=== PATIENT | female | born 1995 | race Caucasian/White ===

== ENCOUNTER 2017-09-11 20:06 | Observation (INO) | payer OTHER ==
[~2017-09-11] VITALS: Ht 157.5 cm; Wt 55.0 kg
[~2017-09-11 20:06] MED LIST: CETI10 PO; HYDR-3533 PO; NAPR-729 PO; Z.0.BCPILL PO; ZOFR4TAB3 PO
[2017-09-11 20:09] VITALS: BP 166/90; PULSE 125; RESP 20; TEMP 98.5; O2SAT 99
--- NOTE | 2017-09-11 21:28 | PD ---
HPI Chief Complaint: Flank/Kidney Pain Time Seen by Provider: 21:19 Travel History International Travel<30 days: No Contact w/Intl Traveler<30days: No Traveled to known affect area: No History of Present Illness HPI 21-year-old white female presents to emergency department with complaints of left flank and left lower quadrant tenderness that came on abruptly at 4:00 this afternoon. She states that this is reminiscent of her kidney stone pain. Patient states that she's had several kidney stones in the past. She isn't [employer] student. She lives in [place]. Her last kidney stone was approximately one year ago. She's had associated nausea but no vomiting. She states the pain is an 8/10. No alleviating or exacerbating activities. She denies any recent illness. She denies any fever, chills, vomiting, dysuria, frequency, hematuria or rashes. [facility] Past Medical History Narrative Medical Nephrolithiasis Kidney Stones: Yes Immunizations Current: Yes Tetanus Vaccination: < 5 Years ?: Not LMP: 08/29/17 Past Surgical History Surgical History: No Previous Surgery Social History Alcohol Use: No Tobacco Use: No Substance Use: No Allergies-Medications (Allergen,Severity, Reaction): Coded Allergies: No Known Allergies (Unverified Adverse Reaction, Unknown, 09/11/17) Reported Meds & Prescriptions Reported Meds & Active Scripts Active Zofran ODT (Ondansetron HCl) 4 Mg Tab 4 Mg PO Q6 PRN May substitute, non-ODT form Lortab 5 mg/325 mg (Hydrocodone/Acetaminophen 5 mg/325 mg) 1 Tab 1 Tab PO Q6HR PRN Naprosyn (Naproxen) 375 Mg Tab 375 Mg PO BID PRN Take as needed for pain, do not combine with other NSAIDs. Reported Control Pills (Miscellaneous Medication) Tab 1 Tab PO DAILY Zyrtec 10 Mg Tab (Cetirizine HCl) 10 Mg Tab 10 Mg PO DAILY Review of Systems General / Constitutional: No: Fever Eyes: No: Visual changes HENT: No: Headaches Cardiovascular: No: Chest Pain or Discomfort Respiratory: No: Shortness of Breath Gastrointestinal: Positive: Nausea, Abdominal Pain, Loss of Appetite Genitourinary: No: Urgency, Dysuria, Nocturia, Hematuria, Pelvic Pain, Discharge Musculoskeletal: No: Pain Skin: No Rash Neurologic: No: Weakness Psychiatric: No: Depression Endocrine: No: Polydipsia Hematologic/Lymphatic: No: Easy Bruising Physical Exam Narrative GENERAL: Well-developed, well-nourished in no apparent mild distress secondary to pain.. Nontoxic appearing. HEAD: Normocephalic, atraumatic. EYES: Pupils equal round and reactive. Extraocular motions intact. No scleral icterus. No injection or drainage. ENT: Nose clear. Throat without erythema, tonsillar hypertrophy or exudate. Uvula midline. Airway patent. NECK: Trachea midline. Supple, nontender, moves head freely. No central bony tenderness or spasm. CARDIOVASCULAR: Regular rate and rhythm without murmurs, gallops, or rubs. RESPIRATORY: Clear to auscultation. Breath sounds equal bilaterally. No wheezes , rales, or rhonchi. GASTROINTESTINAL: Abdomen soft, mild tenderness in the left lower quadrant, nondistended. No hepato-splenomegaly, or palpable masses. No guarding. EXTREMITIES: No clubbing, cyanosis, or edema. No joint tenderness. BACK: Nontender without deformity. No flank tenderness. NEUROLOGICAL: Awake, alert and oriented x 3 .Cranial nerves grossly intact. Motor and sensory grossly within normal limits. Normal speech. Data Data Last Documented VS Vital Signs Date Time Temp Pulse Resp B/P (MAP) Pulse Ox O2 Delivery O2 Flow Rate FiO2 09/11/17 22:25 92 20 144/79 (100) 100 Room Air 09/11/17 20:09 98.5 Orders Orders Urinalysis - C+S If Indicated (09/11/17 20:40) Ed Urine Pregnancytest Poc (09/11/17 20:40) Ct Abd/Pel W/O Iv Contrast (09/11/17 21:20) Iv Access Insert/Monitor (09/11/17 21:23) Complete Blood Count With Diff (09/11/17 21:23) Basic Metabolic Panel (Bmp) (09/11/17 21:23) Sodium Chlor 0.9% 1000 Ml Inj (Ns 1000 M (09/11/17 21:30) Ondansetron Inj (Zofran Inj) (09/11/17 21:30) Ketorolac Inj (Toradol Inj) (09/11/17 21:30) Urine Culture (09/11/17 20:49) Morphine Inj (Morphine Inj) (09/11/17 22:30) Labs Laboratory Tests Test 09/11/17 20:49 09/11/17 21:40 Urine Color YELLOW Urine Turbidity HAZY Urine pH 6.0 Urine Specific [place] 1.023 Urine Protein TRACE mg/dL Urine Glucose (UA) NEG mg/dL Urine Ketones 10 mg/dL Urine Occult Blood MOD Urine Nitrite NEG Urine Bilirubin NEG Urine Urobilinogen 2.0 MG/DL Urine Leukocyte Esterase SMALL Urine RBC 35 /hpf Urine WBC 13 /hpf Urine Squamous Epithelial Cells 5 /hpf Urine Mucus MOD /lpf Microscopic Urinalysis Comment CULTURE INDICATED White Blood Count 9.0 TH/MM3 Red Blood Count 4.49 MIL/MM3 Hemoglobin 13.1 GM/DL Hematocrit 38.6 % Mean Corpuscular Volume 86.0 FL Mean Corpuscular Hemoglobin 29.2 PG Mean Corpuscular Hemoglobin Concent 33.9 % Red Cell Distribution Width 12.1 % Platelet Count 232 TH/MM3 Mean Platelet Volume 8.3 FL Neutrophils (%) (Auto) 68.1 % Lymphocytes (%) (Auto) 24.6 % Monocytes (%) (Auto) 6.3 % Eosinophils (%) (Auto) 0.3 % Basophils (%) (Auto) 0.7 % Neutrophils # (Auto) 6.1 TH/MM3 Lymphocytes # (Auto) 2.2 TH/MM3 Monocytes # (Auto) 0.6 TH/MM3 Eosinophils # (Auto) 0.0 TH/MM3 Basophils # (Auto) 0.1 TH/MM3 CBC Comment DIFF FINAL Differential Comment Blood Urea Nitrogen 9 MG/DL Creatinine 0.62 MG/DL Random Glucose 86 MG/DL Calcium Level 9.0 MG/DL Sodium Level 138 MEQ/L Potassium Level 3.9 MEQ/L Chloride Level 102 MEQ/L Carbon Dioxide Level 25.1 MEQ/L Anion Gap 11 MEQ/L Estimat Glomerular Filtration Rate 122 ML/MIN [facility] Medical Decision Making Medical Screen Exam Complete: Yes Emergency Medical Condition: Yes Medical Record Reviewed: Yes Interpretation(s) Last 24 hours Impressions Abdomen/Pelvis CT 09/11/172119 Signed Impressions: Service Date/Time: Monday, September 11, 2017 22:05 - CONCLUSION: 1. Right ovarian cyst. 2. Nonobstructing punctate right renal calculi. 3. 1 cm left UPJ calculus with mild left hydronephrosis. 4. Small amount of free fluid in the pelvis. Robin A. Josse, MD CBC & BMP Diagram 09/11/17 21:40 Laboratory Tests Test 09/11/17 20:49 09/11/17 21:40 Urine Color YELLOW Urine Turbidity HAZY Urine pH 6.0 Urine Specific [place] 1.023 Urine Protein TRACE mg/dL Urine Glucose (UA) NEG mg/dL Urine Ketones 10 mg/dL Urine Occult Blood MOD Urine Nitrite NEG Urine Bilirubin NEG Urine Urobilinogen 2.0 MG/DL Urine Leukocyte Esterase SMALL Urine RBC 35 /hpf Urine WBC 13 /hpf Urine Squamous Epithelial Cells 5 /hpf Urine Mucus MOD /lpf Microscopic Urinalysis Comment CULTURE INDICATED White Blood Count 9.0 TH/MM3 Red Blood Count 4.49 MIL/MM3 Hemoglobin 13.1 GM/DL Hematocrit 38.6 % Mean Corpuscular Volume 86.0 FL Mean Corpuscular Hemoglobin 29.2 PG Mean Corpuscular Hemoglobin Concent 33.9 % Red Cell Distribution Width 12.1 % Platelet Count 232 TH/MM3 Mean Platelet Volume 8.3 FL Neutrophils (%) (Auto) 68.1 % Lymphocytes (%) (Auto) 24.6 % Monocytes (%) (Auto) 6.3 % Eosinophils (%) (Auto) 0.3 % Basophils (%) (Auto) 0.7 % Neutrophils # (Auto) 6.1 TH/MM3 Lymphocytes # (Auto) 2.2 TH/MM3 Monocytes # (Auto) 0.6 TH/MM3 Eosinophils # (Auto) 0.0 TH/MM3 Basophils # (Auto) 0.1 TH/MM3 CBC Comment DIFF FINAL Differential Comment Blood Urea Nitrogen 9 MG/DL Creatinine 0.62 MG/DL Random Glucose 86 MG/DL Calcium Level 9.0 MG/DL Sodium Level 138 MEQ/L Potassium Level 3.9 MEQ/L Chloride Level 102 MEQ/L Carbon Dioxide Level 25.1 MEQ/L Anion Gap 11 MEQ/L Estimat Glomerular Filtration Rate 122 ML/MIN Calcium Level 9.0 Differential Diagnosis Differential diagnoses: Ovarian torsion, ruptured ovarian cyst, diverticulitis, nephrolithiasis and ureterolithiasis, pyelonephritis Narrative Course IV access is obtained. Patient's given a liter bolus of normal saline, Zofran 4 mg IV, and Toradol 30 mg IV. Routine laboratory tests included CBC, chemistry , UA, hCG and CT of the abdomen has been ordered. CAT scan reveals a 1 cm left UPJ stone with elevated hydronephrosis. Patient has been very uncomfortable. She is been given multiple doses of analgesic medicines. With such a large stone and patient's pain improved with the patient requires admission to the hospital. I discussed the case with Dr. Austin the urologist television repair teacher who is agreed to be consulted on the case. I discussed the case with Dr. Kelly who has agreed to admit the patient. This is left ureterolithiasis Diagnosis Primary Impression: left ureterolithiasis Admitting Information Admitting Physician Requests: Observation Condition: Stable Mathew Curry Sep 11, 2017 21:28
[2017-09-11] MEDS ORDERED: KETOROLAC TROMETHAMINE 30 MG/ML (IVP) VIAL IV PUSH ONE (21:30)
[2017-09-11] MEDS ORDERED: SODIUM CHLOR 0.9% 1000 ML INJ 1,000 ML IV ONE (21:30)
[2017-09-11] MEDS ORDERED: ONDANSETRON HCL 4 MG/2 ML VIAL IV PUSH ONE (21:30)
[2017-09-11 21:33] LABS: BILIRUBIN, URINE NEG (NEG); BLOOD, URINE MOD (NEG); GLUCOSE,URINE NEG (NEG); KETONE, URINE 10 mg/dL (NEG); MUCUS URINE MOD /lpf (OCC); NITRITE,URINE NEG (NEG); SQUAMOUS EPITHELIAL CELL URINE 5 /hpf (0-5); URINE COLOR YELLOW (YELLW/STRAW); URINE LEUKOCYTE ESTERASE SMALL (NEG)
[2017-09-11 21:57] LABS: AUTOMATED NEUTROPHIL # 6.1 TH/MM3 (1.8-7.7); BASOPHIL # 0.1 TH/MM3 (0-0.2); BASOPHIL % 0.7 % (0.0-2.0); EOSINOPHIL % 0.3 % (0.0-4.0); HEMATOCRIT 38.6 % (35.0-46.0); HEMOGLOBIN 13.1 GM/DL (11.6-15.3); LYMPH % 24.6 % (9.0-44.0); LYMPHOCYTE # 2.2 TH/MM3 (1.0-4.8); MEAN CORPUSCULAR HEMOGLOBIN 29.2 PG (27.0-34.0); MEAN CORPUSCULAR HGB CONC 33.9 % (32.0-36.0); MEAN PLATELET VOLUME 8.3 FL (7.0-11.0); MONO % 6.3 % (0.0-8.0); MONOCYTE # 0.6 TH/MM3 (0-0.9); NEUT % 68.1 % (16.0-70.0); PLATELET COUNT 232 TH/MM3 (150-450); RED BLOOD COUNT 4.49 MIL/MM3 (4.00-5.30); RED CELL DISTRIBUTION WIDTH 12.1 % (11.6-17.2)
--- NOTE | 2017-09-11 22:19 | RADRPT ---
EXAM DATE/TIME: 09/11/2017 22:05 [place] COMPARISON: CT ABDOMEN & PELVIS W/O CONTRAST, September 08, 2015, 12:00. INDICATIONS : Left flank pain today. ORAL CONTRAST: No oral contrast ingested. RADIATION DOSE: 4.12 CTDIvol (mGy) MEDICAL HISTORY : None SURGICAL HISTORY : None. ENCOUNTER: Initial ACUITY: 1 day PAIN SCALE: 10/10 LOCATION: Left flank TECHNIQUE: Volumetric scanning of the abdomen and pelvis was performed. Using automated exposure control and ad justment of the mA and/or kV according to patient size, radiation dose was kept as low as reasonably achievable to obtain optimal diagnostic quality images. DICOM format image data is available electro nically for review and comparison. FINDINGS: Lung bases are clear. The osseous structures are intact. No pleural effusions. Liver, gallbladde r, spleen, pancreas, adrenal glands unremarkable. There are a few punctate calculi the right kidney, nonobstructing. Left kidney demonstrates mild hydronephrosis and a stone within the left proximal ure ter on image 42 measuring 1 cm at the ureteropelvic junction. No other stones are seen on the left. T he bladder is unremarkable. Uterus unremarkable. A right ovarian cyst is suspected measuring 4.2 cm. A small amount of free fluid in the pelvis. No evidence of bowel obstruction. CONCLUSION: 1. Right ovarian cyst. 2. Nonobstructing punctate right renal calculi. 3. 1 cm left UPJ calculus with mild left hydronephrosis. 4. Small amount of free fluid in the pelvis. Robin Loaiza MD on September 11, 2017 at 22:14 Board Certified Radiologist. This report was verified electronically.
[2017-09-11 22:21] LABS: BICARBONATE 25.1 MEQ/L (21.0-32.0); CREATININE 0.62 MG/DL (0.50-1.00)
[2017-09-11 22:25] VITALS: BP 144/79; PULSE 92; RESP 20; O2SAT 100
[2017-09-11] MEDS ORDERED: MORPHINE SULFATE 8 MG/ML INJ IV PUSH ONE (22:30)
[2017-09-11 22:33] VITALS: BP 129/68; PULSE 90; RESP 18; O2SAT 100
[2017-09-11] MEDS ORDERED: ONDANSETRON HCL 4 MG/2 ML VIAL IVP PRN (23:15)
[2017-09-11] MEDS ORDERED: SODIUM CHLORIDE 0.9% FLUSH 10 ML FLUSH IV FLUSH PRN (23:15)
[2017-09-11] MEDS ORDERED: NALOXONE HCL 0.4 MG/ML AMP IV PUSH PRN (23:15)
[2017-09-11] MEDS ORDERED: MORPHINE SULFATE 2 MG/ML INJ IV PUSH PRN (23:15)
[2017-09-11] MEDS ORDERED: ACETAMINOPHEN 325 MG TAB PO PRN (23:15)
[2017-09-11] MEDS ORDERED: oxyCODONE/ACETAMINOPHEN 5 MG/325 MG TAB PO PRN (23:15)
[2017-09-11] MEDS: SODIUM CHLOR 0.9% 1000 ML INJ 1,000 ML IV SCH (23:30)
[2017-09-11 23:35] VITALS: BP 119/67; PULSE 80; RESP 16; O2SAT 100
[2017-09-12] VITALS: BP 121/67; PULSE 79; RESP 17; TEMP 98.1; O2SAT 98
--- NOTE | 2017-09-12 02:17 | HHI.HP ---
[facility] No Primary Care Physician Admission Diagnosis left ureterolithiasis Diagnoses: Travel History International Travel<30 Days: No Contact w/Intl Traveler <30 Da: No Traveled to Known Affected Are: No History of Present Illness 21-year-old female presents to the emergency department with a one-day history of left-sided flank pain. Patient has a history of kidney stones that have been recurrent since she was 17. She has not previously required any intervention. She states the pain was so great that she came to the emergency department. She denies any hematuria or pus in her urine. Denies any systemic symptoms such as fever/chills. Review of Systems Denies fever or chills Denies blurry vision, otorrhea, rhinorrhea Denies sore throat and cough No chest pain, palpitations, shortness of breath No abdominal pain Denies constipation/diarrhea/nausea/vomiting Denies muscle pain/weakness No rashes Past Family Social History Past Medical History History of renal calculi Past Surgical History None Reported Medications Reported Meds & Active Scripts Active Zofran ODT (Ondansetron HCl) 4 Mg Tab 4 Mg PO Q6 PRN May substitute, non-ODT form Lortab 5 mg/325 mg (Hydrocodone/Acetaminophen 5 mg/325 mg) 1 Tab 1 Tab PO Q6HR PRN Naprosyn (Naproxen) 375 Mg Tab 375 Mg PO BID PRN Take as needed for pain, do not combine with other NSAIDs. Reported Control Pills (Miscellaneous Medication) Tab 1 Tab PO DAILY Zyrtec 10 Mg Tab (Cetirizine HCl) 10 Mg Tab 10 Mg PO DAILY Allergies: Coded Allergies: No Known Allergies (Unverified Allergy, Unknown, 09/11/17) Family History Mother with history of renal calculi and gallstones. Father healthy. Grandfather with CAD. Social History Occasional alcohol. Denies tobacco or illicit drugs. Physical Exam Vital Signs Vital Signs Date Time Temp Pulse Resp B/P (MAP) Pulse Ox O2 Delivery O2 Flow Rate FiO2 09/12/17 00:00 98.1 79 17 121/67 (85) 98 09/11/17 23:35 80 16 119/67 (84) 100 Room Air 09/11/17 22:33 90 18 129/68 (88) 100 Room Air 09/11/17 22:25 92 20 144/79 (100) 100 Room Air 09/11/17 20:09 98.5 125 20 166/90 (115) 99 Room Air Physical Exam GENERAL: White female lying in bed SKIN: No rashes, ecchymoses or lesions. Cool and dry. HEAD: Atraumatic. Normocephalic. No temporal or scalp tenderness. EYES: Pupils equal round and reactive. Extraocular motions intact. No scleral icterus. No injection or drainage. ENT: Nose without bleeding, purulent drainage or septal hematoma. Throat without erythema, tonsillar hypertrophy or exudate. Uvula midline. Airway patent. NECK: Trachea midline. No JVD or lymphadenopathy. Supple, nontender, no meningeal signs. CARDIOVASCULAR: Regular rate and rhythm without murmurs, gallops, or rubs. RESPIRATORY: Clear to auscultation. Breath sounds equal bilaterally. No wheezes , rales, or rhonchi. GASTROINTESTINAL: Abdomen soft, non-tender, nondistended. No hepato-splenomegaly , or palpable masses. No guarding. : Left CVA tenderness MUSCULOSKELETAL: Extremities without clubbing, cyanosis, or edema. No joint tenderness, effusion, or edema noted. NEUROLOGICAL: Awake and alert. Cranial nerves II through XII intact. Motor and sensory grossly within normal limits. Normal speech. Laboratory Laboratory Tests Test 09/11/17 20:49 09/11/17 21:40 Urine Color YELLOW Urine Turbidity HAZY Urine pH 6.0 Urine Specific [place] 1.023 Urine Protein TRACE Urine Glucose (UA) NEG Urine Ketones 10 Urine Occult Blood MOD Urine Nitrite NEG Urine Bilirubin NEG Urine Urobilinogen 2.0 Urine Leukocyte Esterase SMALL Urine RBC 35 Urine WBC 13 Urine Squamous Epithelial Cells 5 Urine Mucus MOD Microscopic Urinalysis Comment CULTURE INDICATED White Blood Count 9.0 Red Blood Count 4.49 Hemoglobin 13.1 Hematocrit 38.6 Mean Corpuscular Volume 86.0 Mean Corpuscular Hemoglobin 29.2 Mean Corpuscular Hemoglobin Concent 33.9 Red Cell Distribution Width 12.1 Platelet Count 232 Mean Platelet Volume 8.3 Neutrophils (%) (Auto) 68.1 Lymphocytes (%) (Auto) 24.6 Monocytes (%) (Auto) 6.3 Eosinophils (%) (Auto) 0.3 Basophils (%) (Auto) 0.7 Neutrophils # (Auto) 6.1 Lymphocytes # (Auto) 2.2 Monocytes # (Auto) 0.6 Eosinophils # (Auto) 0.0 Basophils # (Auto) 0.1 CBC Comment DIFF FINAL Differential Comment Blood Urea Nitrogen 9 Creatinine 0.62 Random Glucose 86 Calcium Level 9.0 Sodium Level 138 Potassium Level 3.9 Chloride Level 102 Carbon Dioxide Level 25.1 Anion Gap 11 Estimat Glomerular Filtration Rate 122 Date/Time Source Procedure Growth Status 09/11/17 20:49 Urine Clean Catch Urine Culture Pending Received Result Diagram: 09/11/17213909/11/172139 Caprinmohinder VTE Risk Assessment Caprini VTE Risk Assessment: No/Low Risk (score <= 1) Caprini Risk Assessment Model Point Value = 1 Point Value = 2 Point Value = 3 Point Value = 5 Age 41-60 Minor surgery BMI > 25 kg/m2 Swollen legs Varicose veins or History of unexplained or recurrent spontaneous Oral contraceptives or hormone replacement Sepsis (< 1 month) Serious lung disease, including pneumonia (< 1 month) Abnormal pulmonary function Acute myocardial infarction Congestive heart failure (< 1 month) History of inflammatory bowel disease Medical patient at bed rest Age 61-74 Arthroscopic surgery Major open surgery (> 45 min) Laparoscopic surgery (> 45 min) Malignancy Confined to bed (> 72 hours) Immobilizing plaster cast Central venous access Age >= 75 History of VTE Family history of VTE Factor V Leiden Prothrombin [id number] Lupus anticoagulant Anticardiolipin antibodies Elevated serum homocysteine Heparin-induced thrombocytopenia Other congenital or acquired thrombophilia Stroke (< 1 month) Elective arthroplasty Hip, pelvis, or leg fracture Acute spinal cord injury (< 1 month) Prophylaxis Regimen Total Risk Factor Score Risk Level Prophylaxis Regimen 0-1 Low Early ambulation 2 Moderate Order ONE of the following: *Sequential Compression Device (SCD) *Heparin 5000 units SQ BID 3-4 Higher Order ONE of the following medications: *Heparin 5000 units SQ TID *Enoxaparin/Lovenox 40 mg SQ daily (WT < 150 kg, CrCl > 30 mL/min) *Enoxaparin/Lovenox 30 mg SQ daily (WT < 150 kg, CrCl > 10-29 mL/min) *Enoxaparin/Lovenox 30 mg SQ BID (WT < 150 kg, CrCl > 30 mL/min) AND/OR *Sequential Compression Device (SCD) 5 or more Highest Order ONE of the following medications: *Heparin 5000 units SQ TID (Preferred with Epidurals) *Enoxaparin/Lovenox 40 mg SQ daily (WT < 150 kg, CrCl > 30 mL/min) *Enoxaparin/Lovenox 30 mg SQ daily (WT < 150 kg, CrCl > 10-29 mL/min) *Enoxaparin/Lovenox 30 mg SQ BID (WT < 150 kg, CrCl > 30 mL/min) AND *Sequential Compression Device (SCD) Assessment and Plan Assessment and Plan 21-year-old female presents with a 1 cm left renal calculus with mild hydronephrosis 1. Renal calculus CT of the abdomen and pelvis shows nonobstructing punctate right renal calculi and 1 cm left calculus with mild hydronephrosis Urology consulted, appreciate assistance Nothing by mouth until evaluated by urology Pain control with Percocet and morphine IV fluid hydration FEN Nothing by mouth Electrolytes within normal limits: Continue to monitor SCDs NS at 100 cc/hour Kareen Kelly MD Sep 12, 2017 02:17
[2017-09-12] MEDS: SODIUM CHLOR 0.9% 1000 ML INJ 1,000 ML IV SCH (07:47)
[2017-09-12 08:26] VITALS: BP 111/65; PULSE 62; RESP 20; TEMP 98.2; O2SAT 96
[2017-09-12] MEDS ORDERED: SODIUM CHLORIDE 0.9% FLUSH 10 ML FLUSH IV FLUSH SCH (09:00)
[2017-09-12 09:16] LABS: AUTOMATED NEUTROPHIL # 2.7 TH/MM3 (1.8-7.7); BASOPHIL % 0.6 % (0.0-2.0); EOSINOPHIL # 0.1 TH/MM3 (0-0.4); HEMATOCRIT 33.8 % (35.0-46.0); HEMOGLOBIN 11.7 GM/DL (11.6-15.3); LYMPH % 42.2 % (9.0-44.0); LYMPHOCYTE # 2.4 TH/MM3 (1.0-4.8); MEAN CELL VOLUME 86.3 FL (80.0-100.0); MEAN CORPUSCULAR HEMOGLOBIN 29.8 PG (27.0-34.0); MEAN CORPUSCULAR HGB CONC 34.5 % (32.0-36.0); MEAN PLATELET VOLUME 8.4 FL (7.0-11.0); MONO % 8.7 % (0.0-8.0); MONOCYTE # 0.5 TH/MM3 (0-0.9); NEUT % 47.5 % (16.0-70.0); PLATELET COUNT 171 TH/MM3 (150-450); RED BLOOD COUNT 3.92 MIL/MM3 (4.00-5.30); RED CELL DISTRIBUTION WIDTH 11.8 % (11.6-17.2); WHITE BLOOD COUNT 5.6 TH/MM3 (4.0-11.0)
--- NOTE | 2017-09-12 10:27 | HHI.PR ---
Subjective Remarks Follow up for nephrolithiasis, left flank pain. The patient reports continued constant sharp left flank pain with radiation up the back, rated as an 8/10 prior to receiving IV morphine, now 4/10. She reports occasional nausea but no vomiting. Denies any fevers/chills. She is still urinating without difficulty, describes urine as slightly darker than usual, but denies any hematuria. Denies any suprapubic pain or dysuria. She has no other medical complaints at this time . Objective Vitals Vital Signs Date Time Temp Pulse Resp B/P (MAP) Pulse Ox O2 Delivery O2 Flow Rate FiO2 09/12/17 08:26 98.2 62 20 111/65 (80) 96 09/12/17 00:00 98.1 79 17 121/67 (85) 98 09/11/17 23:35 80 16 119/67 (84) 100 Room Air 09/11/17 22:33 90 18 129/68 (88) 100 Room Air 09/11/17 22:25 92 20 144/79 (100) 100 Room Air 09/11/17 20:09 98.5 125 20 166/90 (115) 99 Room Air I/O 09/11/17 09/11/17 09/11/17 09/12/17 09/12/17 09/12/17 07:00 15:00 23:00 07:00 15:00 23:00 Intake Total 1000 ml Balance 1000 ml Intake IV Total 1000 ml # Voids 1 Result Diagram: 09/12/17 0852 09/11/172139 Imaging Last Impressions Abdomen/Pelvis CT 09/11/172119 Signed Impressions: Service Date/Time: Monday, September 11, 2017 22:05 - CONCLUSION: 1. Right ovarian cyst. 2. Nonobstructing punctate right renal calculi. 3. 1 cm left UPJ calculus with mild left hydronephrosis. 4. Small amount of free fluid in the pelvis. Robin Loaiza MD Objective Remarks GENERAL: Well-nourished, well-developed young female patient in [facility]. SKIN: Warm and dry. No rash. HEENT: Normocephalic. Atraumatic. Pupils equal and round. Mucous membranes pink and moist. CARDIOVASCULAR: Regular rate and rhythm. S1, S2 noted. No murmur appreciated. RESPIRATORY: No accessory muscle use. Clear to auscultation. Breath sounds equal bilaterally. GASTROINTESTINAL: Abdomen soft, nondistended, left mid-lower quadrant TTP. Normoactive bowel sounds x4. MUSCULOSKELETAL: No obvious deformities. Extremities without clubbing, cyanosis , or edema. +Left CVA tenderness. NEUROLOGICAL: Awake and alert. No obvious cranial nerve deficits. Motor grossly within normal limits. Normal speech. PSYCHIATRIC: Appropriate mood and affect; insight and judgment normal. Medications and IVs Current Medications Medications (Trade) Dose Ordered Sig/Salena Route Start Time Stop Time Status Last Admin Sodium Chloride 1,000 ml @ 100 mls/hr Q10H IV 09/11/17 23:07 09/12/17 07:47 (NS Flush) 2 ml UNSCH PRN IV FLUSH 09/11/17 23:15 (NS Flush) 2 ml BID IV FLUSH 09/12/17 09:00 (Tylenol) 650 mg Q4H PRN PO 09/11/17 23:15 (Zofran Inj) 4 mg Q6H PRN IVP 09/11/17 23:15 09/12/17 03:43 (Narcan Inj) 0.4 mg UNSCH PRN IV PUSH 09/11/17 23:15 (Morphine Inj) 2 mg Q3H PRN IV PUSH 09/11/17 23:15 09/12/17 03:44 (Percocet 5-325 Mg) 1 tab Q4H PRN PO 09/11/17 23:15 09/12/17 00:26 (Toradol Inj) 15 mg Q6HR IV PUSH 09/12/17 12:00 UNV (Flomax) 0.4 mg DAILY PO 09/12/17 12:00 UNV A/P Problem List: (1) Nephrolithiasis ICD Code: N20.0 - Calculus of kidney Assessment and Plan 21-year-old female with history of nephrolithiasis presents with a 1 day history of left flank pain, found to have a 1 cm left renal calculus with mild hydronephrosis Acute Nephrolithiasis: with hx of recurrent nephrolithiasis. CT abd/pelvis images reviewed, shows nonobstructing punctate right renal calculi and 1 cm left calculus with mild hydronephrosis. -Continue pain control with percocet and IV morphine prn -Supportive treatment with IVF hydration -Antiinflammatory with IV toradol 15mg q6h -Urology consulted, appreciate assistance DVT Prophylaxis: teds/SCDs, ambulation Discharge Planning 1700hrs: Discussed with Dr. Austin urologist, recommends flomax, antiinflammatory, and ok to discharge home. Instructed patient to f/up in the office tomorrow morning. Patient is understanding and agreeable with this plan. Will discharge home. Discharge patient to home Condition on discharge: Improved Regular Diet as tolerated Ad Cherie activity Rx written: flomax 0.4mg qd #14, ketorolac 10mg q6h prn pain #20, percocet 1tab po q6h prn pain #20 Follow-up with primary care physician within [address] Austin tomorrow Maribel Adams PA-C Sep 12, 2017 10:27
[2017-09-12] MEDS ORDERED: TAMSULOSIN HCL 0.4 MG CAP PO SCH (12:00)
[2017-09-12] MEDS ORDERED: KETOROLAC TROMETHAMINE 30 MG/ML (IVP) VIAL IV PUSH SCH (12:00)
[2017-09-12 12:04] LABS: CREATININE 0.56 MG/DL (0.50-1.00)
[2017-09-12 12:11] VITALS: BP 110/60; PULSE 89; RESP 20; TEMP 97.8; O2SAT 96
[2017-09-12 16:45] VITALS: BP 113/59; PULSE 70; RESP 20; TEMP 97.8; O2SAT 96
[2017-09-12] MEDS ORDERED: TAMS5CAP PO (17:04)
[2017-09-12] MEDS ORDERED: KETO10 PO (17:04)
--- NOTE | 2017-09-12 17:05 | HHI.DCPOC ---
Discharge Care Plan Diagnosis: (1) Nephrolithiasis Goals to Promote Your Health * To prevent worsening of your condition and complications * To maintain your health at the optimal level Directions to Meet Your Goals Take your medications as prescribed Follow your dietary instruction Follow activity as directed Keep your appointments as scheduled Take your immunizations and boosters as scheduled If your symptoms worsen call your PCP, if no PCP go to Urgent Care Center or Emergency Room Smoking is Dangerous to Your Health. Avoid second hand smoke Call the 24-hour hour crisis hotline for domestic abuse at Maribel Adams PA-C Sep 12, 2017 5:04 pm
--- NOTE | 2017-09-12 17:05 | HHI.DCPOC ---
Discharge Care Plan Diagnosis: (1) Nephrolithiasis Goals to Promote Your Health * To prevent worsening of your condition and complications * To maintain your health at the optimal level Directions to Meet Your Goals Take your medications as prescribed Follow your dietary instruction Follow activity as directed Keep your appointments as scheduled Take your immunizations and boosters as scheduled If your symptoms worsen call your PCP, if no PCP go to Urgent Care Center or Emergency Room Smoking is Dangerous to Your Health. Avoid second hand smoke Call the 24-hour hour crisis hotline for domestic abuse at Maribel Adams PA-C Sep 12, 2017 5:04 pm
--- NOTE | 2017-09-12 17:05 | HHI.DCPOC ---
Discharge Care Plan Diagnosis: (1) Nephrolithiasis Goals to Promote Your Health * To prevent worsening of your condition and complications * To maintain your health at the optimal level Directions to Meet Your Goals Take your medications as prescribed Follow your dietary instruction Follow activity as directed Keep your appointments as scheduled Take your immunizations and boosters as scheduled If your symptoms worsen call your PCP, if no PCP go to Urgent Care Center or Emergency Room Smoking is Dangerous to Your Health. Avoid second hand smoke Call the 24-hour hour crisis hotline for domestic abuse at Maribel Adams PA-C Sep 12, 2017 5:04 pm
--- NOTE | 2017-09-12 17:06 | PD.CONS ---
HPI Service Urology Consult Requested By Reason for Consult Nephrolithiasis Primary Care Physician No Primary Care Physician Diagnosis: (1) Nephrolithiasis ICD Code: N20.0 - Calculus of kidney History of Present Illness 21yo female with history of multiple kidney stones now seen in consultation for large left renal stone and persistent flank pain. Patient reported to the ED due to significant left flank pain. CT scan identified large 1cm Left UPJ stone with mild left hydronephrosis. Patient denies any fevers, however pain intense, 10/10, sharp and stabbing to left flank, radiating to the anterior abdomen. No N /V. She has had multiple stones in the past, none required surgical intervention , passing on their own. She does not have a Urologist. Review of Systems ROS Limitations: Clinical Condition Constitutional: DENIES: Fever Eyes: DENIES: Blurred vision Ears, nose, mouth, throat: DENIES: Hearing loss Respiratory: DENIES: Apneas, Cough Cardiovascular: DENIES: Chest pain Gastrointestinal: COMPLAINS OF: Abdominal pain Genitourinary: COMPLAINS OF: Dysuria, DENIES: Urinary frequency, Hematuria Musculoskeletal: COMPLAINS OF: Back pain Integumentary: DENIES: Rash Hematologic/lymphatic: DENIES: Bruising Neurologic: DENIES: Abnormal gait, Headache Psychiatric: DENIES: Anxiety Except as stated in HPI: all other systems reviewed are Neg Past Family Social History Past Medical History History of renal calculi Past Surgical History None Reported Medications Reported Meds & Active Scripts Active Ketorolac (Ketorolac Tromethamine) 10 Mg Tab 10 Mg PO Q6HR PRN Flomax (Tamsulosin HCl) 0.4 Mg Cap 0.4 Mg PO DAILY Zofran ODT (Ondansetron HCl) 4 Mg Tab 4 Mg PO Q6 PRN May substitute, non-ODT form Lortab 5 mg/325 mg (Hydrocodone/Acetaminophen 5 mg/325 mg) 1 Tab 1 Tab PO Q6HR PRN Naprosyn (Naproxen) 375 Mg Tab 375 Mg PO BID PRN Take as needed for pain, do not combine with other NSAIDs. Reported Control Pills (Miscellaneous Medication) Tab 1 Tab PO DAILY Zyrtec 10 Mg Tab (Cetirizine HCl) 10 Mg Tab 10 Mg PO DAILY Allergies: Coded Allergies: No Known Allergies (Unverified Allergy, Unknown, 09/11/17) Active Ordered Medications Current Medications Medications (Trade) Dose Ordered Sig/Salena Route Start Time Stop Time Status Last Admin Sodium Chloride 1,000 ml @ 100 mls/hr Q10H IV 09/11/17 23:07 09/12/17 07:47 (NS Flush) 2 ml UNSCH PRN IV FLUSH 09/11/17 23:15 (NS Flush) 2 ml BID IV FLUSH 09/12/17 09:00 (Tylenol) 650 mg Q4H PRN PO 09/11/17 23:15 (Zofran Inj) 4 mg Q6H PRN IVP 09/11/17 23:15 09/12/17 03:43 (Narcan Inj) 0.4 mg UNSCH PRN IV PUSH 09/11/17 23:15 (Morphine Inj) 2 mg Q3H PRN IV PUSH 09/11/17 23:15 09/12/17 03:44 (Percocet 5-325 Mg) 1 tab Q4H PRN PO 09/11/17 23:15 09/12/17 00:26 (Toradol Inj) 15 mg Q6HR IV PUSH 09/12/17 12:00 09/16/17 18:01 09/12/17 12:20 (Flomax) 0.4 mg DAILY PO 09/12/17 12:00 09/12/17 12:18 Family History Mother with kidney stones Social History Occasional alcohol. Denies tobacco or illicit drugs. Physical Exam Vital Signs Date Time Temp Pulse Resp B/P (MAP) Pulse Ox O2 Delivery O2 Flow Rate FiO2 09/12/17 16:45 97.8 70 20 113/59 (77) 96 09/12/17 13:20 20 09/12/17 12:11 97.8 89 20 110/60 (77) 96 09/12/17 08:26 98.2 62 20 111/65 (80) 96 09/12/17 00:00 98.1 79 17 121/67 (85) 98 09/11/17 23:35 80 16 119/67 (84) 100 Room Air 09/11/17 22:33 90 18 129/68 (88) 100 Room Air 09/11/17 22:25 92 20 144/79 (100) 100 Room Air 09/11/17 20:09 98.5 125 20 166/90 (115) 99 Room Air Physical Exam GENERAL: This is a well-nourished, well-developed patient, in no apparent distress. SKIN: No rashes, ecchymoses or lesions. Cool and dry. HEAD: Atraumatic. Normocephalic. EYES: Extraocular motions intact. No scleral icterus. No injection or drainage. ENT: Nose without bleeding, purulent drainage. Airway patent. NECK: Trachea midline. CARDIOVASCULAR: Normal pulses RESPIRATORY: nonlabored, equal chest rise GASTROINTESTINAL: Abdomen soft, non-tender, nondistended. MUSCULOSKELETAL: Extremities without clubbing, cyanosis, or edema.. NEUROLOGICAL: Awake and alert. Motor and sensory grossly within normal limits. Normal speech. Lab results reviewed: Yes Laboratory Tests Test 09/11/17 20:49 09/11/17 21:40 09/12/17 08:52 Urine Color YELLOW Urine Turbidity HAZY Urine pH 6.0 Urine Specific [place] 1.023 Urine Protein TRACE Urine Glucose (UA) NEG Urine Ketones 10 Urine Occult Blood MOD Urine Nitrite NEG Urine Bilirubin NEG Urine Urobilinogen 2.0 Urine Leukocyte Esterase SMALL Urine RBC 35 Urine WBC 13 Urine Squamous Epithelial Cells 5 Urine Mucus MOD Microscopic Urinalysis Comment CULTURE INDICATED White Blood Count 9.0 5.6 Red Blood Count 4.49 3.92 Hemoglobin 13.1 11.7 Hematocrit 38.6 33.8 Mean Corpuscular Volume 86.0 86.3 Mean Corpuscular Hemoglobin 29.2 29.8 Mean Corpuscular Hemoglobin Concent 33.9 34.5 Red Cell Distribution Width 12.1 11.8 Platelet Count 232 171 Mean Platelet Volume 8.3 8.4 Neutrophils (%) (Auto) 68.1 47.5 Lymphocytes (%) (Auto) 24.6 42.2 Monocytes (%) (Auto) 6.3 8.7 Eosinophils (%) (Auto) 0.3 1.0 Basophils (%) (Auto) 0.7 0.6 Neutrophils # (Auto) 6.1 2.7 Lymphocytes # (Auto) 2.2 2.4 Monocytes # (Auto) 0.6 0.5 Eosinophils # (Auto) 0.0 0.1 Basophils # (Auto) 0.1 0.0 CBC Comment DIFF FINAL DIFF FINAL Differential Comment Blood Urea Nitrogen 9 8 Creatinine 0.62 0.56 Random Glucose 86 70 Calcium Level 9.0 8.0 Sodium Level 138 141 Potassium Level 3.9 3.8 Chloride Level 102 109 Carbon Dioxide Level 25.1 24.0 Anion Gap 11 8 Estimat Glomerular Filtration Rate 122 137 Date/Time Source Procedure Growth Status 09/11/17 20:49 Urine Clean Catch Urine Culture - Preliminary RESULTS PENDING Resulted Result Diagram: 09/12/17 0852 09/12/17 0852 Personally reviewed images: Yes Imaging Last Impressions Abdomen/Pelvis CT 09/11/172119 Signed Impressions: Service Date/Time: Wednesday, September 11, 2017 22:05 - CONCLUSION: 1. Right ovarian cyst. 2. Nonobstructing punctate right renal calculi. 3. 1 cm left UPJ calculus with mild left hydronephrosis. 4. Small amount of free fluid in the pelvis. Robin Loaiza MD Assessment and Plan Problem List: (1) Nephrolithiasis ICD Code: N20.0 - Calculus of kidney Assessment and Plan -CT images personally reviewed with 1cm left UPJ stone noted -Patient's pain has been well controlled and no elevated WBC or fevers, normal Cr -We discussed in detail her stone location and possible treatment options, including stent and ESWL -Discussed with Patient;s mother over the phone current clinical status and treatment options as well -At this time, the patient is stable and comfortable. No immediate intervention required -However, patient's stone is rather large and will likely need intervention -Patient is clear for discharge from Urology standpoint with pain medication. Recommend Toradol -Patient to follow-up in clinic tomorrow morning. She will discuss with her family and decide to potentially pursue stent placement, which we may do tomorrow if desired -Patient understands and agrees with the above plan -Please call with questions Fernandez Austin MD Sep 12, 2017 17:06
[2017-09-12] MEDS ORDERED: PERC5TAB12 PO (18:27)
--- NOTE | 2017-09-12 18:28 | HHI.PR ---
Addendum to Inpatient Note Addendum Reason: Additional Documentation Additional Information I was asked by Dr. Cotton to change pt's pain medication for discharge to percocets 5/325 1 tab po q6hrs prn pain and give 20 tablets Rozina Jernigan MD Sep 12, 2017 18:28
== END 2017-09-12 19:47 | disposition home or self-care (01) ==
LOC: NEPD 20:06 → NEDA 22:38 → NEPFCDU 23:43
PROVIDERS: ADMIT Hospitalist; ATTEND Hospitalist
DX: N13.2 Hydronephrosis with renal and ureteral calculous obstruction (principal); R11.0 Nausea; Z87.442 Personal history of urinary calculi; N83.201 Unspecified ovarian cyst, right side
CPT/HCPCS: 74176; 80048; 81001; 84703; 85025; 87086; 96361; 96374; 96375; 96376; 99285; G0378; J1885; J2270; J2405; J7030